=== PATIENT | female | born 1995 | race Caucasian/White ===

== ENCOUNTER 2016-12-28 16:41 | Emergency (ER) | payer OTHER ==
[2016-12-28 17:00] VITALS: BP 125/83; PULSE 72; RESP 16; TEMP 98.8; O2SAT 97
[2016-12-28] MEDS ORDERED: ACYCLOVIR 400 MG PREPACK#4 BTL TAKEHOME ONE (17:50)
--- NOTE | 2016-12-28 17:50 | UCPHY ---
H & P Time Seen by Provider: 12/28/16 16:43 Patient Type: New HPI/ROS: 21-year-old female presents complaining of severe sore throat for several days duration. She denies cough Review of systems General no fever no chills no weakness HEENT no eye pain no eye discharge. 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 [employer] Smoking Status: Never smoked Physical Exam: 21-year-old female Alert and oriented in no acute distress nontoxic appearance, afebrile Atraumatic normocephalic Extraocular muscles intact, anicteric Neck-supple, positive anterior cervical lymphadenopathy mildly tender to palpation Oropharynx positive enlarged tonsils, erythematous, no uvular deviation, no purulent exudate, tolerating own secretions, no trismus Patient's posterior pharynx including her tonsils have multiple ulcers on erythematous base Lungs clear to auscultation bilaterally Heart regular rate and rhythm Abdomen normoactive bowel sounds soft nontender Extremities no cyanosis clubbing edema Skin no rash Constitutional: Initial Vital Signs Temperature (C) 37.1 C 12/28/16 16:57 Heart Rate 72 12/28/16 16:57 Respiratory Rate 16 12/28/16 16:57 Blood Pressure 125/83 H 12/28/16 16:57 O2 Sat (%) 97 12/28/16 16:57 O2 Delivery Mode Room Air Allergies/Adverse Reactions: No Known Allergies Allergy (Unverified 12/28/16 17:00) Home Medications: Medication Instructions Recorded Acyclovir [Zovirax 400 mg (*)] 400 mg PO 5XD #21 tab 12/28/16 Lidocaine 2% Viscous 5 ml PO QID #100 ml 12/28/16 oxyCODONE/APAP 5/325 [Percocet 1 - 2 tab PO Q12H PRN #12 tab 12/28/16 5/325 (*)] Medical Decision Making ED Course/Re-evaluation: Patient seen and evaluated for severe sore throat Strep negative Physical exam with multiple ulcerations on tonsils and posterior pharynx consistent with [id number] type viral illness Impression Severe viral pharyngitis Plan Acyclovir Oxycodone Prednisone Follow-up PCP Return if worsening - Data Points Laboratory Results: 12/28/16 Unknown Group A Strep DNA NEGATIVE (NEGATIVE) Medications Given: Discontinued Medications Acyclovir (Zovirax 400 Mg Prepack #4) 1 btl TAKEHOME EDNOW ONE Stop: 12/28/16 17:51 Last Admin: 12/28/16 18:20 Dose: 1 btl Lidocaine (Lidocaine 2% Viscous) 5 ml PO EDNOW ONE Stop: 12/28/16 17:52 Last Admin: 12/28/16 18:26 Dose: 5 ml Oxycodone/Acetaminophen (Percocet 5/325mg Prepack#4) 1 btl TAKEHOME EDNOW ONE Stop: 12/28/16 17:53 Last Admin: 12/28/16 18:15 Dose: 1 btl Prednisone (Prednisone) 60 mg PO EDNOW ONE Stop: 12/28/16 17:52 Last Admin: 12/28/16 18:00 Dose: 60 mg Departure - Departure Disposition: Home, Routine, Self-Care Clinical Impression: Viral pharyngitis Condition: Good Instructions: Pharyngitis (ED), Hand, Foot, and Mouth Disease (ED) Additional Instructions: The lesions on the back of your throat are consistent with apthous ulcers also commonly called cold sores, these are most commonly because of a virus. This virus could be oral herpes it also could be and is quite commonly a virus called Coxsackie virus. Your rapid strep today was negative there will be a 24 hour culture for strep if it is positive we will call you and call in antibiotics for you. You are being given prescriptions for viscous lidocaine, 5 mL, 2 swish and spit for pain, as often as 4 times a day As well as a prescription for a stronger pain medicine that does contain a narcotic it is cold Percocet, you may take 1-2 tablets as often as every 6 hours however do not drink alcohol or operate a vehicle or heavy machinery while taking this medicine. Additionally you are being given a prescription for acyclovir which can shorten the duration of viral pharyngitis. You were given 1 dose of prednisone in urgent care to decrease inflammation and swelling in her throat. Referrals: NONE *PRIMARY CARE P,. [Primary Care Provider] - As per Instructions Prescriptions: Lidocaine 2% Viscous 5 ml PO QID #100 ml oxyCODONE/APAP 5/325 [Percocet 5/325 (*)] 1 - 2 tab PO Q12H PRN #12 tab PRN Reason: Pain, Severe Acyclovir [Zovirax 400 mg (*)] 400 mg PO 5XD #21 tab - PQRS PQRS Measurement: na
[2016-12-28] MEDS ORDERED: LIDOCAINE 2% VISCOUS 15 ML UDCUP PO ONE (17:51)
[2016-12-28] MEDS ORDERED: predniSONE 20 MG TAB PO ONE (17:51)
[2016-12-28] MEDS ORDERED: OXYCODONE/APAP 5/325MG PREPACK#4 BTL TAKEHOME ONE (17:52)
== END 2016-12-28 18:27 | disposition home or self-care (01) ==
LOC: CED 16:41
DX: J02.9 Acute pharyngitis, unspecified (principal)
CPT/HCPCS: 87880-PO; G0463-PO

== ENCOUNTER → 2017-05-08 | Outpatient (CLI) | payer OTHER | LOC: FIMAGING 13:02 | DX: Z11.1 Encounter for screening for respiratory tuberculosis (principal); K50.119 Crohn's disease of large intestine with unspecified complications ==